=== PATIENT | female | born 1995 | race Caucasian/White ===

== ENCOUNTER → 2019-02-09 | Outpatient (CLI) | payer SELFPAY ==
--- NOTE | 2019-02-09 11:18 | RADIOLOGY REPORT (SQ) ---
EXAM DESCRIPTION: U/S BO2YVSH TRNABD 1GES W/ODOP COMPLETED DATE/TIME: 02/09/2019 10:46 am REASON FOR STUDY: Z34.81 ENCOUNTER FOR SUPRVSN OF NORMAL , FIRST TRIMESTER Z34.81 ENCOUNTE R FOR SUPRVSN OF NORMAL , FIRST TRIM COMPARISON: None. TECHNIQUE: Transabdominal static and realtime grayscale images acquired of the pelvis. Additional se lected spectral and color Doppler images recorded. All images stored on PACs. bHCG: Not applicable. CLINICAL DATES: LMP 11/24/2018. 11 weeks 0 days. LIMITATIONS: None. FINDINGS: FETUS: Single Living intrauterine . ULTRASOUND EGA: 10 weeks 6 days. ULTRASOUND SALVADOR: 09/01/2019 EFW: Not applicable less than 20 weeks. CRL: 4 cm. FHR: 163 beats per minute. SURVEY: Too early to assess. AMNIOTIC FLUID: Adequate amount. PLACENTA: Not yet developed due to early gestation. SUBCHORIONIC BLEED: No SIZE OF BLEED: Not applicable. UTERUS: No masses. No anomalies. CERVICAL LENGTH: 1.8 cm. Closed. RIGHT ADNEXA: Normal ovary with normal vascular flow. 2.2 x 2.7 x 2.9 cm. No adnexal free fluid. No adnexal masses. LEFT ADNEXA: Normal ovary with normal vascular flow. 3.1 x 2.2 x 2.2 cm. No adnexal free fluid. No adnexal masses. FREE FLUID: None. OTHER: No other significant finding. IMPRESSION: LIVING INTRAUTERINE . EGA 10 weeks 6 days. Trimester of : First trimester - 0 to 13 weeks. TECHNICAL DOCUMENTATION: JOB ID: [id number]- All Rights Reserved rev Reading location - IP/workstation name: [email or web address]
== END ==
LOC: RAD 10:00
PROVIDERS: ATTEND Nurse Practitioner Family
DX: Z34.81 Encounter for supervision of other normal pregnancy, first trimester (principal); Z3A.10 10 weeks gestation of pregnancy
CPT/HCPCS: 76801

== ENCOUNTER 2019-04-01 21:13 | Emergency (ER) | payer MEDICAID ==
[2019-04-01] MEDS ORDERED: METOCLOPRAMIDE HCL 10 MG TABLET PO ONE (21:35)
[2019-04-01] MEDS ORDERED: ACETAMINOPHEN 325 MG TABLET PO ONE (21:35)
--- NOTE | 2019-04-01 21:38 | ER Document Report ---
ED Medical Screen (RME) - General Stated Complaint: HEAD PAIN/ PREG+ Time Seen by Provider: 04/01/19 21:30 Primary Care Provider: ADONAY SANDHU ARNP [Primary Care Provider] - Follow up as needed TRAVEL OUTSIDE OF THE [place] IN LAST 30 DAYS: No - HPI Notes: 04/01/19 21:36 Patient is a 23-year-old female approximately 18 weeks who presents complaining of head injury around 730 this evening. 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 Patient states that she may have lost consciousness for a "couple seconds." Patient states that she does have soreness to the left side of her neck going down the left side of her back since the injury. Patient states that she has had some nausea and is not sure if this is related to the or not. She otherwise feels like she is back to baseline minus a headache with light sensitivity. Denies any fever, changes in vision/speech/mentation/hearing, URI, sore throat, chest pain, palpitations, syncope, cough, shortness of breath, wheeze, dyspnea, abdominal pain, vomiting/diarrhea, urinary retention, dysuria, hematuria, loss of control of bowel or bladder, numbness/tingling, saddle anesthesia, muscle paralysis/weakness, or rash. I have treated and performed a rapid initial assessment of this patient. A comprehensive ED assessment and evaluation of the patient, analysis of test results and completion of medical decision making process will be conducted by additional ED providers. PHYSICAL EXAMINATION: GENERAL: Well-appearing, well-nourished and in no acute distress. A&Ox4. Answers questions appropriately. Neuro: NIH 0, GCS 15, cranial nerves grossly intact. Normal sensory and motor. Eyes: PERRLA, EOMI bilaterally. No nystagmus. Neck: No midline tenderness. There is left para cervical spinal tenderness noted. FROM. - Related Data Allergies/Adverse Reactions: pineapple [Pineapple] Allergy (Verified 10/05/14 02:20) Blisters oranges Allergy (Uncoded 10/05/14 02:20) Blisters Past Medical History Past Surgical History: Reports: Hx Tonsillectomy - adnoids - Immunizations Immunizations up to date: Yes Hx Diphtheria, Pertussis, Tetanus Vaccination: Yes Physical Exam - Vital signs Vitals: Temp Pulse Resp BP Pulse Ox 98.1 F 91 16 112/62 100 04/01/19 21:20 04/01/19 21:20 04/01/19 21:20 04/01/19 21:20 04/01/19 21:20 Course - Vital Signs Vital signs: Temp Pulse Resp BP Pulse Ox 98.1 F 91 16 112/62 100 04/01/19 21:20 04/01/19 21:20 04/01/19 21:20 04/01/19 21:20 04/01/19 21:20 Doctor's Discharge - Discharge Referrals: ADONAY SANDHU ARNP [Primary Care Provider] - Follow up as needed
--- NOTE | 2019-04-02 00:45 | ER Document Report ---
ED General - General Chief Complaint: Headache Stated Complaint: HEAD PAIN/ PREG+ Time Seen by Provider: 04/01/19 21:30 Primary Care Provider: ADONAY SANDHU ARNP [NO LOCAL MD] - Follow up as needed TRAVEL OUTSIDE OF THE [place] IN LAST 30 DAYS: No - HPI Notes: 23-year-old female who is currently 18 weeks presents with head injury. Patient says she was participating in a cheerleading class several hours ago when another participant accidentally struck her in the forehead with the knee. Patient says she may have transiently blacked out. Since then she has had mild dull headache and was slightly nauseated without vomiting. No focal neurologic symptoms. - Related Data Allergies/Adverse Reactions: pineapple [Pineapple] Allergy (Verified 10/05/14 02:20) Blisters oranges Allergy (Uncoded 10/05/14 02:20) Blisters Past Medical History - General Information source: Patient - Social History Smoking Status: Never Smoker Chew tobacco use (# tins/day): No Frequency of alcohol use: None Drug Abuse: None Family History: Reviewed & Not Pertinent Patient has suicidal ideation: No Patient has homicidal ideation: No Past Surgical History: Reports: Hx Tonsillectomy - adnoids - Immunizations Immunizations up to date: Yes Hx Diphtheria, Pertussis, Tetanus Vaccination: Yes Review of Systems - Review of Systems Notes: Constitutional: Negative for fever. HENT: Negative for sore throat. Eyes: Negative for visual changes. Cardiovascular: Negative for chest pain. Respiratory: Negative for shortness of breath. Gastrointestinal: As per HPI. Genitourinary: Negative for dysuria. Musculoskeletal: Negative for back pain. Skin: Negative for rash. Neurological: As per HPI. 10 point ROS negative except as marked above and in HPI. Physical Exam - Vital signs Vitals: Temp Pulse Resp BP Pulse Ox 98.1 F 91 16 112/62 100 04/01/19 21:20 04/01/19 21:20 04/01/19 21:20 04/01/19 21:20 04/01/19 21:20 - Notes Notes: GENERAL: Well-developed well-nourished appearing mildly photophobic. SKIN: Good turgor no rashes. HEAD: Normocephalic atraumatic. EYES: PERRLA. EOMI. Conjunctivae and sclerae clear. EARS: CANALS AND TMS CLEAR. NOSE: CLEAR. MOUTH: Moist mucosa. Good dentition. No stridor or edema. No drooling. NECK: Supple. No masses or thyromegaly. No adenopathy. Carotids 2+ without bruits. No JVD. BACK: Symmetrical without tenderness. CHEST: Respirations unlabored. Breath sounds clear and symmetrical. HEART: Regular rhythm. No murmur gallop or rub. ABDOMEN: Uterus is enlarged consistent with dates. FHT 128 by Doppler. Soft nontender without masses, hepatosplenomegaly or rebound. Bowel sounds normally active. No bruits. GENITALIA: Deferred. EXTREMITIES: No edema. No calf tenderness. Cap refill less than 1.5 seconds. Dorsalis pedis and posterior tibial pulses 3+ and symmetrical. NEUROLOGICAL: GCS 15. Alert and oriented x3. Normal gait. Fluent speech. Cranial nerves II through XII intact. Sensorimotor and cerebellar normal. Normal tone. PSYCHIATRIC: Appropriate affect. Course - Re-evaluation Re-evalutation: 04/02/19 00:41 Clinically I think this lady has had a mild concussion. We discussed risks and benefits of CT scan of the head. In view of her and issues regarding radiation exposure she declined CT and I think this is appropriate. We will give her printed head injury instructions and discharge her follow-up with her PRESIDENT & CEO. I told her she could take Tylenol and will also provide a prescription for metoclopramide. 04/02/19 00:45 - Vital Signs Vital signs: Temp Pulse Resp BP Pulse Ox 98.1 F 91 16 112/62 100 04/01/19 21:20 04/01/19 21:20 04/01/19 21:20 04/01/19 21:20 04/01/19 21:20 Discharge - Discharge Clinical Impression: Concussion with brief loss of consciousness, Intrauterine at 18 weeks EGA Condition: Stable Disposition: HOME, SELF-CARE Additional Instructions: Concussion You have suffered a concussion -- a temporary loss of certain brain functions due to a mild brain injury. The recovery is usually rapid and complete. The temporary problems occurring with a concussion can include loss of consciousness, dizziness, nausea, vomiting, and confusion. Repeat concussions can cause brain damage. In the future, avoid activities that will cause a blow to your head. Wear a helmet for sports such as snowboarding, biking, or skating. It's important that someone be with you for the first 24 hours. During this time, do not exercise or drive a vehicle. Do not take any pain medication stro nger than acetaminophen unless prescribed by the physician. Any significant changes should be reported immediately to the physician. Signs of a problem may include: (1) Mental confusion (2) Incoordination or staggering (3) Repeated or forceful vomiting (4) Clear or bloody drainage from ear, mouth, or nose (5) Severe headache, not relieved by acetaminophen or prescribed pain medication (6) Failure to improve in 24 hours Tylenol as needed. Reglan as needed for nausea. Follow-up with your PRESIDENT & CEO tomorrow. Prescriptions: Metoclopramide HCl [Reglan 10 mg Tablet] 10 mg PO Q4H PRN #12 tablet PRN Reason: Nausea Forms: Return to Work Referrals: ADONAY SANDHU ARNP [NO LOCAL MD] - Follow up as needed
[2019-04-02 01:50] VITALS: BP 93/53
== END 2019-04-02 01:48 | disposition home or self-care (01) ==
LOC: ER 21:13
DX: O9A.212 Injury, poisoning and certain other consequences of external causes complicating pregnancy, second trimester (principal); S06.0X1A Concussion with loss of consciousness of 30 minutes or less, initial encounter; O26.892 Other specified pregnancy related conditions, second trimester; R51 Headache; R11.0 Nausea; Z3A.18 18 weeks gestation of pregnancy; W51.XXXA Accidental striking against or bumped into by another person, initial encounter; Y93.45 Activity, cheerleading
CPT/HCPCS: 99283; J3490 ×2

== ENCOUNTER 2019-07-26 15:40 | Outpatient (CLI) | payer MEDICAID ==
[2019-07-26 17:03] LABS: AMORPHOUS SEDIMENT,URINE TRACE /HPF; APPEARANCE,URINE SLIGHTLY-CLOUDY; BILIRUBIN,URINE NEGATIVE (NEGATIVE); COLOR,URINE YELLOW; GLUCOSE, URINE NEGATIVE (NEGATIVE); KETONES,URINE NEGATIVE (NEGATIVE); LEUKOCYTE ESTERASE,URINE MODERATE (NEGATIVE); NITRITE,URINE NEGATIVE (NEGATIVE); PROTEIN,URINE NEGATIVE (NEGATIVE); URINE SPECIFIC GRAVITY 1.005; UROBILINOGEN,URINE NEGATIVE mg/dL (<2.0)
--- NOTE | 2019-07-26 17:21 | RADIOLOGY REPORT (SQ) ---
EXAM DESCRIPTION: U/S OB LIMITED IMAGES COMPLETED DATE/TIME: 07/26/2019 5:01 pm REASON FOR STUDY: post fall, baby well being, placenta COMPARISON: None. TECHNIQUE: Limited transabdominal grayscale ultrasound for evaluation of specific requested obstetri taran parameters. LIMITATIONS: None. FINDINGS: CERVICAL LENGTH: Not visualized. CHARLEE: 12.0 cm. LBP -- 4.6 cm x 4.8 cm FHR: 139 beats per minute. PRESENTATION: Cephalic. PLACENTA: Anterior. Placenta lakes of visualized. ANATOMY: Not assessed OTHER: SALVADOR: 09/02/2019. EGA: 34 weeks 4 days. EFW: 2376 grams IMPRESSION: LIMITED OBSTETRICAL ULTRASOUND WITH MEASURED PARAMETERS DELINEATED ABOVE. Trimester of : Third trimester - 28 weeks to delivery. TECHNICAL DOCUMENTATION: JOB ID: [id number] [employer]- All Rights Reserved Reading location - IP/workstation name: [email or web address]
[2019-07-26 17:45] LABS: URINE AMPHETAMINES SCREEN NEGATIVE; URINE BARBITURATES SCREEN NEGATIVE; URINE BENZODIAZEPINES SCREEN NEGATIVE; URINE COCAINE SCREEN NEGATIVE; URINE MARIJUANA (THC) SCREEN NEGATIVE; URINE METHADONE SCREEN NEGATIVE; URINE PHENCYCLIDINE SCREEN NEGATIVE
[2019-07-26 17:46] LABS: HEMOGLOBIN 12.5 g/dL (12.0-15.5); MEAN CORPUSCULAR HEMOGLOBIN 31.1 pg (27.0-33.4); MEAN CORPUSCULAR HGB CONC 34.7 g/dL (32.0-36.0); MEAN CORPUSCULAR VOLUME 90 fl (80-97); PLATELET COUNT 239 10^3/uL (150-450); RED BLOOD COUNT 4.02 10^6/uL (3.72-5.28); WHITE BLOOD COUNT 9.9 10^3/uL (4.0-10.5)
[2019-07-26 18:32] LABS: ABSOLUTE LYMPHOCYTES# (MANUAL) 2.3 10^3/uL (0.5-4.7); ABSOLUTE MONOCYTES # (MANUAL) 0.7 10^3/uL (0.1-1.4); BASOPHILS % (MANUAL) 0 % (0-2); EOSINOPHILS % (MANUAL) 0 % (0-6); LYMPHOCYTES % (MANUAL) 23 % (13-45); MONOCYTES % (MANUAL) 7 % (3-13); SEGMENTED NEUTROPHILS % (MAN) 70 % (42-78); TOTAL CELLS COUNTED 100
[2019-07-26 18:33] LABS: PLATELET COMMENT ADEQUATE
[2019-07-26 18:35] LABS: ANISOCYTOSIS SLIGHT; POLYCHROMASIA 1+
[2019-07-26 18:38] LABS: SCHISTOCYTES SLIGHT
--- NOTE | 2019-07-26 19:14 | Non Stress Test Report ---
Non Stress Test Datetime Report Generated by CPN: 07/26/2019 19:14 DEMOGRAPHIC EGA NST: 34.6 INDICATION Indication for Study (NST) Other: Post Fall VITAL SIGNS Temperature - NST: 98.0 MONITORING Monitor Explained: Monitor Explained; Test Explained; Patient Verbalized Understanding Time on Monitor: 07/26/2019 16:10 Time off Monitor: 07/26/2019 17:33 NST Duration: 83 NST INTERVENTIONS NST Interventions: PO Hydration; Reposition Patient Physician Notified NST: Dr. Lam BABY A: [id number] BABY A Movement : Present Contraction Frequency : x1 FHR Baseline : 135 Accelerations : 15X15 Decelerations : None Variability : Moderate 6-25bpm NST Review: Meets Criteria for Reactive NST NST Review and Verified By : Serge Toney NST Results: Reactive NST REPORT Report Trigger: Send Report
[2019-07-26 21:27] LABS: RHOGAM DOSE INDICATED 0 VIAL(S)
== END 2019-07-26 19:13 | disposition home or self-care (01) ==
LOC: LC 15:40
PROVIDERS: ATTEND Obstetrics & Gynecology
DX: O9A.213 Injury, poisoning and certain other consequences of external causes complicating pregnancy, third trimester (principal); W19.XXXA Unspecified fall, initial encounter; Z3A.34 34 weeks gestation of pregnancy; Z91.040 Latex allergy status; Z91.018 Allergy to other foods
CPT/HCPCS: 36415; 59025; 76815; 80307; 81001; 85025; 85460

== ENCOUNTER 2019-08-25 04:40 | Inpatient (IN) | payer MEDICAID ==
[2019-08-18 09:57] LABS: ABSOLUTE EOSINOPHILS # (AUTO) 0.1 10^3/uL (0.0-0.6); ABSOLUTE LYMPHOCYTES (AUTO) 1.3 10^3/uL (0.5-4.7); ABSOLUTE MONOCYTES (AUTO) 0.6 10^3/uL (0.1-1.4); ABSOLUTE NEUT (AUTO) 5.4 10^3/uL (1.7-8.2); BASOPHILS % (AUTO) 0.2 % (0-2); EOSINOPHILS % (AUTO) 1.5 % (0-6); HEMATOCRIT 39.3 % (36.0-47.0); HEMOGLOBIN 13.3 g/dL (12.0-15.5); LYMPHOCYTES % (AUTO) 17.9 % (13-45); MEAN CORPUSCULAR HEMOGLOBIN 30.6 pg (27.0-33.4); MEAN CORPUSCULAR HGB CONC 33.9 g/dL (32.0-36.0); MEAN CORPUSCULAR VOLUME 90 fl (80-97); PLATELET COUNT 203 10^3/uL (150-450); RED BLOOD COUNT 4.35 10^6/uL (3.72-5.28); RED CELL DISTRIBUTION WIDTH 16.7 % (11.5-14.0); SEGMENTED NEUTROPHILS % (AUTO) 72.4 % (42-78); TOTAL CELLS COUNTED % (AUTO) 100 %; WHITE BLOOD COUNT 7.4 10^3/uL (4.0-10.5)
[2019-08-18 10:03] LABS: APPEARANCE,URINE CLOUDY; BILIRUBIN,URINE NEGATIVE (NEGATIVE); COLOR,URINE YELLOW; GLUCOSE, URINE NEGATIVE (NEGATIVE); KETONES,URINE NEGATIVE (NEGATIVE); LEUKOCYTE ESTERASE,URINE TRACE (NEGATIVE); NITRITE,URINE NEGATIVE (NEGATIVE); PROTEIN,URINE NEGATIVE (NEGATIVE); UROBILINOGEN,URINE NEGATIVE mg/dL (<2.0)
[2019-08-18 10:14] LABS: URINE AMPHETAMINES SCREEN NEGATIVE; URINE BARBITURATES SCREEN NEGATIVE; URINE BENZODIAZEPINES SCREEN NEGATIVE; URINE COCAINE SCREEN NEGATIVE; URINE MARIJUANA (THC) SCREEN NEGATIVE; URINE METHADONE SCREEN NEGATIVE; URINE PHENCYCLIDINE SCREEN NEGATIVE
[2019-08-18 10:25] LABS: ADD MANUAL MICROSCOPIC YES
[2019-08-18 10:27] LABS: BACTERIA,URINE 3+ /HPF
[2019-08-25] MEDS ORDERED: LIDOCAINE 0.5% INJ-PF (5 MG/ML) 50 ML SDV SUBCUT PRN (05:00)
[2019-08-25] MEDS ORDERED: CEFAZOLIN 2 GM/D5W RTU 2 GM/50 ML RTUPB IV PRN (05:00)
[2019-08-25] MEDS ORDERED: RINGERS SOLUTION,LACTATED 1,500 ML IV PRN (05:00)
[2019-08-25] MEDS ORDERED: LACTATED RINGERS 1000 ML IV PRN (05:00)
[2019-08-25] MEDS ORDERED: OXYTOCIN/0.9 % SODIUM CHLORIDE 30 UNIT/500 ML RTUINJ ONE (10:15)
[2019-08-25] MEDS ORDERED: BUPIVACAINE HCL 0.25 % INJ/PF (2.5 MG/1 ML) 30 ML VIAL ONE (10:15)
[2019-08-25] MEDS ORDERED: OXYTOCIN 10 UNIT/ML VIAL ONE (10:15)
[2019-08-25] MEDS ORDERED: MIDAZOLAM 2 MG/2 ML INJ ONE (10:15)
[2019-08-25] MEDS ORDERED: MORPHINE SULFATE 10 MG/ML INJ ONE (10:15)
[2019-08-25] MEDS ORDERED: ONDANSETRON HCL INJ/PF 4 MG/2 ML SDV ONE (10:16)
[2019-08-25] MEDS ORDERED: MEASLES,MUMPS&RUBELLA VACC/PF 0.5 ML VIAL SUBCUT PRN (12:39)
[2019-08-25] MEDS ORDERED: OXYTOCIN/0.9 % SODIUM CHLORIDE 30 UNIT/500 ML RTUINJ IV PRN (12:39)
[2019-08-25] MEDS ORDERED: SIMETHICONE 80 MG TAB.CHEW PO PRN (12:39)
[2019-08-25] MEDS ORDERED: OXYCODONE-ACETAMINOPHEN 5-325 MG TABLET PO PRN ×3 (12:39→13:57)
[2019-08-25] MEDS ORDERED: PROMETHAZINE HCL INJ 25 MG/1 ML VIAL IV PRN ×3 (12:39→13:57)
[2019-08-25] MEDS ORDERED: ACETAMINOPHEN 325 MG TABLET PO PRN (12:39)
[2019-08-25] MEDS ORDERED: DIPH/PERTUSS(ACELL)/TETANUS VAC/PF 0.5 ML SYR (>=10YO) IM PRN (12:39)
[2019-08-25] MEDS ORDERED: ACETAMINOPHEN 1,000 MG/100 ML RTUPB IV PRN (12:39)
--- NOTE | 2019-08-25 12:43 | Operative Report ---
Operative Report DATE OF SURGERY: 08/25/19 PREOPERATIVE DIAGNOSIS: Patient desires repeat to prevent risk of layne rine rupture POSTOPERATIVE DIAGNOSIS: Same OPERATION: Low transverse SURGEON: DRAKE GARZA ANESTHESIA: Spinal TISSUE REMOVED OR ALTERED: Placenta COMPLICATIONS: None ESTIMATED BLOOD LOSS: 250 cc INTRAOPERATIVE FINDINGS: Viable female infant crying at delivery, normal uterus tubes and ovaries PROCEDURE: Patient was taken to the OR and placed in supine position after her spinal anesthesia. She is prepared and draped in sterile fashion. Cuellar was placed for drainage of the bladder. Low transverse incision was made and carried down the level of the fascia. The fascial incision was made with knife and extended bilaterally with curved Marx scissors. The fascia was off the rectus muscles using sharp and blunt dissection. The rectus muscles are in the midline. The peritoneum was entered without incident. Bladder blade was placed in uterine segment was identified. A low transverse incision was made creating a bladder flap. Bladder blade was placed low transverse uterine incision was made with the knife and extended with fingertips. The baby was delivered with some fundal pressure. Mouth and nose were suctioned free. The cord is doubly clamped and cut. Baby is passed off to the customer counter associate in attendance. The placenta was manually extracted with trailing membranes. The uterus was externalized wrapped in a moist lap sponge. Uterine contents wiped free. Uterus was closed with a running locking layer of 0 chromic suture using the second layer to imbricate the first completing a double layer closure of the uterus. The serosa was closed with a running 2-0 chromic stitch. The pelvis was irrigated and suctioned free of fluid the uterus was replaced in the abdomen. The abdominal wall peritoneum was closed with running 2-0 chromic stitch. Fascia was closed with a running 0 Vicryl in 2 segments. Alvaro's layer was brought together with 0 plain gut stitch and the skin was closed with running subcuticular 4-0 undyed Vicryl stitch. The wound was dressed mother and baby did well.
[2019-08-25] MEDS ORDERED: EPHEDRINE SULFATE INJ 50 MG/1 ML AMPULE ONE (12:53)
[2019-08-25] MEDS ORDERED: ACETAMINOPHEN 1,000 MG/100 ML RTUPB IV ONE (13:50)
[2019-08-25] MEDS: RINGERS SOLUTION,LACTATED 1,000 ML IV PRN ×2 (13:52→20:21)
[2019-08-25] MEDS ORDERED: DIPHENHYDRAMINE HCL 50 MG/ML VIAL IV PRN (13:57)
[2019-08-25] MEDS ORDERED: MORPHINE SULFATE 10 MG/ML INJ IV PRN (13:57)
[2019-08-25] MEDS ORDERED: FENTANYL CITRATE INJ/PF 100 MCG/2 ML AMPUL IV PRN ×3 (13:57)
[2019-08-25] MEDS ORDERED: MEPERIDINE HCL/PF INJ 25 MG/1 ML DISP.SYRIN IV PRN (13:57)
[2019-08-25] MEDS ORDERED: FENTANYL CITRATE INJ/PF 100 MCG/2 ML AMPUL ONE (14:01)
[2019-08-25] MEDS ORDERED: PROMETHAZINE HCL INJ 25 MG/1 ML VIAL ONE (14:13)
[2019-08-25] MEDS: KETOROLAC TROMETHAMINE INJ/PF 30 MG/1 ML SDV IV SCH ×2 (15:54→22:59)
[2019-08-25] MEDS: OXYCODONE-ACETAMINOPHEN 5-325 MG TABLET PO PRN ×2 (16:00→20:23)
[2019-08-25] MEDS ORDERED: HYDROMORPHONE HCL INJ/PF 2 MG/ML AMPULE IV PRN (16:26)
[2019-08-25] MEDS: DOCUSATE SODIUM 100 MG CAPSULE PO SCH (17:49)
[2019-08-26] MEDS: RINGERS SOLUTION,LACTATED 1,000 ML IV PRN (04:40)
[2019-08-26 06:17] LABS: HEMATOCRIT 33.6 % (36.0-47.0); HEMOGLOBIN 11.6 g/dL (12.0-15.5); MEAN CORPUSCULAR HEMOGLOBIN 31.5 pg (27.0-33.4); MEAN CORPUSCULAR HGB CONC 34.6 g/dL (32.0-36.0); MEAN CORPUSCULAR VOLUME 91 fl (80-97); PLATELET COUNT 163 10^3/uL (150-450); RED BLOOD COUNT 3.69 10^6/uL (3.72-5.28); RED CELL DISTRIBUTION WIDTH 17.4 % (11.5-14.0); WHITE BLOOD COUNT 8.5 10^3/uL (4.0-10.5)
[2019-08-26] MEDS: KETOROLAC TROMETHAMINE INJ/PF 30 MG/1 ML SDV IV SCH (06:25)
[2019-08-26] MEDS: OXYCODONE-ACETAMINOPHEN 5-325 MG TABLET PO PRN ×3 (07:28→21:26)
[2019-08-26] MEDS: PRENATAL VITAMIN W DHA CAPSULE PO SCH (09:35)
[2019-08-26] MEDS: DOCUSATE SODIUM 100 MG CAPSULE PO SCH ×2 (09:35→18:26)
[2019-08-26] MEDS: IBUPROFEN 800 MG TABLET PO SCH ×2 (11:11→18:26)
--- NOTE | 2019-08-26 13:55 | PDOC PROGRESS REPORT ---
Subjective-OB Progress Note for:: 08/26/19 Subjective: Pt doing well, reports light bleeding. She is ambulatory, has been up to void. Denies difficulty. Reg diet. Physical Exam (OB) Vital Signs: Temp Pulse Resp BP Pulse Ox 97.6 F 78 16 94/47 L 99 08/26/19 11:13 08/26/19 11:13 08/26/19 11:13 08/26/19 11:13 08/26/19 11:13 Intake & Output 08/25/19 08/26/19 08/27/19 06:59 06:59 06:59 Intake Total 4790 1942 Output Total 1375 Balance 3415 1942 - PIH/Pre-Eclampsia Headache: Absent Epigastric Pain: No Visual Changes: No - Dressing Removed: No Incision: Dressing - Lochia Lochia Amount: Scant < 10 ml Lochia Color: Rubra/Red - Abdomen Description: Soft Hernia Present: No Fundal Description: Firm, Midline Fundal Height: u/u - u/2 Objective-Diagnostic Laboratory: 08/26/19 05:57 08/26/19 08/26/19 05:57 05:57 WBC 8.5 RBC 3.69 L Hgb 11.6 L Hct 33.6 L MCV 91 MCH 31.5 MCHC 34.6 RDW 17.4 H Plt Count 163 Blood Type O NEGATIVE Assessment and Plan(PN) - Assessment and Plan (1) Anemia Qualifiers: Anemia type: iron deficiency Iron deficiency anemia type: inadequate dietary iron intake Qualified Code(s): D50.8 - Other iron deficiency anemias Is this a current diagnosis for this admission?: Yes (2) Asthma Qualifiers: Asthma severity: unspecified severity Asthma persistence: unspecified Asthma complication type: unspecified Qualified Code(s): J45.909 - Unspecified asthma, uncomplicated Is this a current diagnosis for this admission?: Yes (3) Delivery by section of full-term Is this a current diagnosis for this admission?: Yes - Time Spent with Patient Time with patient: Less than 15 minutes Medications reviewed and adjusted accordingly: Yes - Disposition Anticipated Discharge: Home Within: within 24 hours
[2019-08-27] MEDS: IBUPROFEN 800 MG TABLET PO SCH ×3 (00:43→12:40)
[2019-08-27] MEDS: OXYCODONE-ACETAMINOPHEN 5-325 MG TABLET PO PRN ×2 (03:47→10:32)
--- NOTE | 2019-08-27 10:09 | PDOC PROGRESS REPORT ---
Subjective-OB Progress Note for:: 08/27/19 Subjective: Doing well, ready to go home, baby should be going, pain under control, wants to take a shower, scant bleeding, , ambulating, mother in room Physical Exam (OB) Vital Signs: Temp Pulse Resp BP Pulse Ox 97.9 F 70 18 106/68 99 08/27/19 07:38 08/27/19 07:38 08/27/19 07:38 08/27/19 07:38 08/27/19 07:38 Intake & Output 08/26/19 08/27/19 08/28/19 06:59 06:59 06:59 Intake Total 4790 1942 Output Total 1375 Balance 3415 1942 - PIH/Pre-Eclampsia Headache: Absent Epigastric Pain: No Visual Changes: No - Dressing Removed: No Incision: Dressing - Lochia Lochia Amount: Scant < 10 ml Lochia Color: Rubra/Red - Abdomen Description: Soft, Round Hernia Present: No Fundal Description: Firm, Midline Fundal Height: u/u - u/2 Objective-Diagnostic Laboratory: 08/26/19 05:57 Assessment and Plan(PN) - Assessment and Plan (1) Rh negative status during Qualifiers: Trimester: first trimester Qualified Code(s): O26.891 - Other specified related conditions, first trimester; Z67.91 - Unspecified blood type, Rh negative Is this a current diagnosis for this admission?: Yes (2) Gestational diabetes Qualifiers: Gestational diabetes mellitus control: oral hypoglycemic-controlled Trimester: second trimester Qualified Code(s): O24.415 - Gestational diabetes mellitus in , controlled by oral hypoglycemic drugs Is this a current diagnosis for this admission?: Yes (3) Anemia Qualifiers: Anemia type: iron deficiency Iron deficiency anemia type: inadequate dietary iron intake Qualified Code(s): D50.8 - Other iron deficiency anemias Is this a current diagnosis for this admission?: Yes (4) Delivery by section of full-term Is this a current diagnosis for this admission?: Yes (5) Asthma Qualifiers: Asthma severity: unspecified severity Asthma persistence: unspecified Asthma complication type: unspecified Qualified Code(s): J45.909 - Unspecified asthma, uncomplicated Is this a current diagnosis for this admission?: Yes - Time Spent with Patient Time with patient: Less than 15 minutes Medications reviewed and adjusted accordingly: Yes - Disposition Anticipated Discharge: Home Within: within 24 hours
--- NOTE | 2019-08-27 10:17 | PDOC DISCHARGE SUMMARY ---
Impression - Admit/DC Date/PCP Admission Date/Primary Care Provider: 08/25/19 04:40 KACIE CONN MD Discharge Date: 08/27/19 - Discharge Diagnosis (1) Rh negative status during Is this a current diagnosis for this admission?: Yes (2) Gestational diabetes Is this a current diagnosis for this admission?: Yes (3) Anemia Is this a current diagnosis for this admission?: Yes (4) Delivery by section of full-term infant Is this a current diagnosis for this admission?: Yes (5) Asthma Is this a current diagnosis for this admission?: Yes - Additional Information Resuscitation Status: Full Code Discharge Diet: As Tolerated, Regular Discharge Activity: Activity As Tolerated, No Driving, No Lifting Over 10 Pounds, No Lifting/Push/Pulling, Pelvic Rest, No tub bath Referrals: KACIE CONN MD [Primary Care Provider] - (A 1 week) Prescriptions: Oxycodone HCl/Acetaminophen [Percocet 5-325 mg Tablet] 1 tab PO Q4HP PRN #20 tablet PRN Reason: Ibuprofen [Motrin 800 mg Tablet] 800 mg PO Q6 #30 tablet Home Medications: Albuterol Sulfate [Proventil 0.5% Neb 2.5 mg/0.5 ml Vial.neb] 2 puff PO Q4 PRN 08/31/14 No.137/Iron/Folic Acd [ Vitamin Tablet] 1 tab PO DAILY 08/31/14 Docusate Sodium [Colace 100 mg Capsule] 100 mg PO BID #60 capsule 10/07/14 Ibuprofen [Motrin 800 mg Tablet] 800 mg PO Q6 #60 tablet 10/07/14 Ibuprofen [Motrin 800 mg Tablet] 800 mg PO Q6 #30 tablet 08/27/19 Oxycodone HCl/Acetaminophen [Percocet 5-325 mg Tablet] 1 tab PO Q4HP PRN #20 tablet 08/27/19 HPI Gestational Age: 39 Reason(s) for Admission: Ceasarean Section-Repeat, Gestional Diabetes Procedures: NST, Ultrasound Intrapartum Procedure(s): : Low Cervical, Transverse Hospital Course Hospital Course: routine post op Results Laboratory Results: WBC 8.5 10^3/uL (4.0-10.5) 08/26/19 05:57 RBC 3.69 10^6/uL (3.72-5.28) L 08/26/19 05:57 Hgb 11.6 g/dL (12.0-15.5) L 08/26/19 05:57 Hct 33.6 % (36.0-47.0) L 08/26/19 05:57 MCV 91 fl (80-97) 08/26/19 05:57 MCH 31.5 pg (27.0-33.4) 08/26/19 05:57 MCHC 34.6 g/dL (32.0-36.0) 08/26/19 05:57 RDW 17.4 % (11.5-14.0) H 08/26/19 05:57 Plt Count 163 10^3/uL (150-450) 08/26/19 05:57 Lymph % (Auto) 17.9 % (13-45) 08/18/19 08:47 Castro % (Auto) 8.0 % (3-13) 08/18/19 08:47 Eos % (Auto) 1.5 % (0-6) 08/18/19 08:47 Baso % (Auto) 0.2 % (0-2) 08/18/19 08:47 Absolute Neuts (auto) 5.4 10^3/uL (1.7-8.2) 08/18/19 08:47 Absolute Lymphs (auto) 1.3 10^3/uL (0.5-4.7) 08/18/19 08:47 Absolute Monos (auto) 0.6 10^3/uL (0.1-1.4) 08/18/19 08:47 Absolute Eos (auto) 0.1 10^3/uL (0.0-0.6) 08/18/19 08:47 Absolute Basos (auto) 0.0 10^3/uL (0.0-0.2) 08/18/19 08:47 Seg Neutrophils % 72.4 % (42-78) 08/18/19 08:47 POC Glucose 91 mg/dL (70-110) 08/25/19 05:27 Urine Color YELLOW 08/18/19 08:02 Urine Appearance CLOUDY 08/18/19 08:02 Urine pH 6.0 (5.0-9.0) 08/18/19 08:02 Ur Specific [place] 1.020 08/18/19 08:02 Urine Protein NEGATIVE mg/dL (NEGATIVE) 08/18/19 08:02 Urine Glucose (UA) NEGATIVE mg/dL (NEGATIVE) 08/18/19 08:02 Urine Ketones NEGATIVE mg/dL (NEGATIVE) 08/18/19 08:02 Urine Blood NEGATIVE (NEGATIVE) 08/18/19 08:02 Urine Nitrite NEGATIVE (NEGATIVE) 08/18/19 08:02 Urine Bilirubin NEGATIVE (NEGATIVE) 08/18/19 08:02 Urine Urobilinogen NEGATIVE mg/dL (<2.0) 08/18/19 08:02 Ur Leukocyte Esterase TRACE (NEGATIVE) H 08/18/19 08:02 Urine WBC 5-10 /HPF 08/18/19 08:02 Ur Squamous Epith Cells MODERATE /HPF 08/18/19 08:02 Urine Bacteria 3+ /HPF 08/18/19 08:02 Urine Ascorbic Acid NEGATIVE (NEGATIVE) 08/18/19 08:02 Urine Opiates Screen NEGATIVE 08/18/19 08:02 Urine Methadone Screen NEGATIVE 08/18/19 08:02 Ur Barbiturates Screen NEGATIVE 08/18/19 08:02 Ur Phencyclidine Scrn NEGATIVE 08/18/19 08:02 Ur Amphetamines Screen NEGATIVE 08/18/19 08:02 U Benzodiazepines Scrn NEGATIVE 08/18/19 08:02 Urine Cocaine Screen NEGATIVE 08/18/19 08:02 U Marijuana (THC) Screen NEGATIVE 08/18/19 08:02 COVID-19 Source NASOPHARYNGEAL 08/18/19 08:49 COVID-19 (MARTI) NOT DETECTED 08/18/19 08:49 Blood Type O NEGATIVE 08/26/19 05:57 Antibody Screen POSITIVE 08/24/19 08:21 Antibody Identification RHOGAM INDUCED ANTI-D 08/24/19 08:21 Screen NEGATIVE 08/26/19 05:57 Crossmatch See Detail 08/24/19 08:21 Plan Health Concerns: rooutine post op, rev S&S to report, no tub baths, keep record of BS, 1 day, take iron and PNV Plan of Treatment: see above Goals: no complications Time Spent: Less than 30 Minutes
[2019-08-27] MEDS: PRENATAL VITAMIN W DHA CAPSULE PO SCH (10:31)
[2019-08-27] MEDS: DOCUSATE SODIUM 100 MG CAPSULE PO SCH (10:31)
[2019-08-27 11:59] VITALS: BP 98/50
== END 2019-08-27 14:37 | disposition home or self-care (01) | DRG 788 ==
LOC: 2S 04:40 → EEVIPCON 04:40
PROVIDERS: ADMIT Obstetrics & Gynecology; ATTEND Obstetrics & Gynecology
PROC: 10D00Z1 Extraction of Products of Conception, Low, Open Approach (ICD-10-PCS; principal; 2019-08-25)
DX: O24.425 Gestational diabetes mellitus in childbirth, controlled by oral hypoglycemic drugs (principal); O34.211 Maternal care for low transverse scar from previous cesarean delivery; O99.02 Anemia complicating childbirth; D50.9 Iron deficiency anemia, unspecified; O99.52 Diseases of the respiratory system complicating childbirth; J45.909 Unspecified asthma, uncomplicated; O26.893 Other specified pregnancy related conditions, third trimester; Z67.41 Type O blood, Rh negative; Z37.0 Single live birth; Z03.818 Encounter for observation for suspected exposure to other biological agents ruled out; Z3A.39 39 weeks gestation of pregnancy
CPT/HCPCS: 1961; 36415; 59025; 64450; 76942; 80307; 81001; 82962; 85025; 85027; 85461; 86850; 86870; 86900; 86901; 86920; 86922; 87635; 94760; 94799; C1758; C9803; J0131; J1170; J1885; J2250; J2270; J2405; J2550; J2590; J2790; J3010; J3490; J7120